=== PATIENT | male | born 1995 | race Caucasian/White ===

== ENCOUNTER 2018-10-07 17:43 | Emergency (ER) | payer SELFPAY ==
[~2018-10-07] VITALS: Ht 190.5 cm; Wt 83.4 kg
[2018-10-07 17:46] VITALS: Ht 190.5 cm; Wt 83.4 kg
[2018-10-07] MEDS ORDERED: KETOROLAC 30 MG INJ IM STA (18:27)
[2018-10-07] MEDS ORDERED: IBUP-1542 PO (18:30)
[2018-10-07] MEDS ORDERED: DEXAMETHASONE 10 MG/ML 1 ML INJ IM ONE (18:30)
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
[2018-10-07 18:43] VITALS: BP 124/80; PULSE 60; RESP 16
== END 2018-10-07 18:44 | disposition home or self-care (01) ==
LOC: FTE 17:43
DX: M54.2 Cervicalgia (principal); M54.9 Dorsalgia, unspecified; M25.522 Pain in left elbow; R51 Headache
CPT/HCPCS: 96372; 99284; J1100; J1885